=== PATIENT | male | born 1940 | race Caucasian/White ===

== ENCOUNTER 2018-06-05 08:00 | Day surgery (SDC) | payer MEDICARE, BC ==
[2018-06-04 10:44] LABS: HEMATOCRIT 42.3 % (42.0-54.0); HEMOGLOBIN 14.3 g/dL (13.5-17.5); MCH 28.7 pg (26.0-34.0); MCHC 33.8 g/dL (31.0-37.0); MCV 84.8 fL (80.0-100.0); MEAN PLATELET VOLUME 8.8 fL (7.4-10.4); RBC 4.99 10x6/uL (4.20-6.10); RDW 13.4 % (11.5-14.5); WBC 7.3 10x3/uL (4.8-10.8)
[~2018-06-05] VITALS: Ht 162.6 cm; Wt 78.2 kg
[~2018-06-05 08:00] MED LIST: ASPIRIN EC81 M1 PO; COREG6.25 MG PO; LIPITOR80 MG PO; LISINOPRIL2.5 MG PO; LYCOPENE PO; MULTI-DAY VITAM1 TAB PO; NITROQUICK0.4 MG SL
[2018-06-05 08:15] VITALS: BP 118/43; Ht 162.6 cm; Wt 78.2 kg
--- NOTE | 2018-06-05 12:47 | OP ---
PATIENT NAME: ANALY TONEY MEDICAL RECORD: [id number] :41 LOCATION:[facility] ADMISSION DATE: SURGEON: BILL CABRERA MD DATE OF OPERATION: 06/05/2018 SURGEON: Bill Cabrera MD ANESTHESIA: TIVA by Sandeep Chowdhury CRNA. DIAGNOSES: Elevated PSA of 4.8 on 05/08/2018. Bladder outlet obstruction with an IPSS score of 15 and quality of life score of 2. PROCEDURES: Cystoscopy, transrectal ultrasound and prostate biopsy. FINDINGS: On cystoscopy, bilateral lateral lobe enlargement. Minimal median lobe. Single ureteral orifices seen bilaterally with no bladder tumors seen. On transrectal ultrasound, the prostate is 48 grams in size. There is a hypoechoic area in the right apex and intraprostatic stones are seen. SPECIMENS: Prostate biopsy cores. BLOOD LOSS: None. CLINICAL HISTORY: This is a 77-year-old male, who was recently moved to [place] from [place], [place]. He has issues with obstructive BPH. He had an elevated PSA in 2016 and a prostate biopsy in 2017 by his urologist, Dr. Blum. This was benign. He continues to have obstructive voiding symptoms including hesitancy, slow urinary flow, postvoid dribbling and straining to fully empty. He has not had any urinary tract infections. Significantly, his father had BPH and prostate cancer. He was in the [place], but he did not have any [place] exposure. On rectal examination, no palpable nodules were found on the prostate. He comes today to have a prostate biopsy. If the pathology is benign, he is a candidate for the UroLift procedure. He is not allergic to any medications. He was given Ancef family preservation caseworker to the OR. DESCRIPTION OF PROCEDURE: The patient was given IV sedation. He was then placed into lithotomy position and prepped and draped. A 17-Kiswahili cystoscope with 30-degree lens was used for visualization. The prostate was obstructive and it was mainly lateral lobe obstruction. The bladder neck was a little bit tall, but no significant median lobe was identified. No bladder tumors were seen. The bladder was then emptied through the cystoscope and the scope was removed. We then introduced the transrectal ultrasound probe. Prostatic size measurements were obtained and we obtained a size of 48 mL or 48 grams. Internal prostatic stones were seen. At the right apex, we noted a prominent hypoechoic area. Sextant biopsies were obtained with at least 3 cores from each sextant. On the right apex, I concentrated a few cores right at the hypoechoic zone. Once all the specimens were obtained, the procedure was terminated. I will see the patient in followup later this week or early next week to review the pathology results with him. TRANSINT:[id number] Voice Confirmation ID: [id number] DOCUMENT ID: [id number] OPERATIVE REPORT [id number] ANALY TONEY ROBERT S MD at 1247 CC: [id number] DICTATION DATE: 06/05/18 1119 LIGHTER: 06/05/18 [id number] [place] [address]
--- NOTE | 2018-06-05 15:46 | NUR ---
1220 DRESSED, AWAKE & ALERT. GIVEN DISCHARGE INFORMATION INCLUDING: MED REC, RTC APPT., [facility], & COMPUTER GENERATED POST PROSTATE BIOPSY & POST CYSTOSCOPY D/C INSTRUCTIONS. PT VOICED UNDERSTANDING. TO PRIVATE CAR PER WHEELCHAIR. HOME WITH FRIEND, TAE GUZMANBELL. Carrington PENA R.N.
== END 2018-06-05 12:20 | disposition home or self-care (01) ==
LOC: D.OPS 08:00 → D.PAN 10:10 → D.OPS 10:10 → D.PAN 11:00 → D.OPS 11:15 → D.PAN 11:15 → D.OPS 12:20
PROVIDERS: Anesthesiology; ATTEND Urology
DX: N42.31 Prostatic intraepithelial neoplasia (principal); N40.1 Benign prostatic hyperplasia with lower urinary tract symptoms; N13.8 Other obstructive and reflux uropathy; N42.0 Calculus of prostate; R39.11 Hesitancy of micturition; R39.16 Straining to void; R39.12 Poor urinary stream; Z80.42 Family history of malignant neoplasm of prostate; Z01.812 Encounter for preprocedural laboratory examination

== ENCOUNTER 2018-07-17 05:12 | Day surgery (SDC) | payer MEDICARE, BC ==
[~2018-07-17] VITALS: Ht 162.6 cm; Wt 65.8 kg
[2018-07-17 05:29] LABS: HEMATOCRIT 39.9 % (42.0-54.0); HEMOGLOBIN 13.6 g/dL (13.5-17.5); MCH 29.5 pg (26.0-34.0); MCHC 34.1 g/dL (31.0-37.0); MCV 86.6 fL (80.0-100.0); RBC 4.61 10x6/uL (4.20-6.10); RDW 13.3 % (11.5-14.5); WBC 9.4 10x3/uL (4.8-10.8)
[2018-07-17 06:30] VITALS: BP 142/60; Ht 162.6 cm; Wt 65.8 kg
--- NOTE | 2018-07-17 08:52 | NUR ---
0850 SERVED FULL LIQUID DIET. Carrington PENA R.N.
--- NOTE | 2018-07-17 12:51 | OP ---
PATIENT NAME: ANALY TONEY MEDICAL RECORD: [id number] :41 LOCATION:[facility] ADMISSION DATE: SURGEON: BILL CABRERA MD DATE OF OPERATION: 07/17/2018 SURGEON: Bill Cabrera MD ANESTHESIA: TIVA by Sandeep Chowdhury CRNA. DIAGNOSES: Obstructive BPH with PSA 4.8. Transrectal ultrasound size is 48 grams. IPPS score is 15 and quality of life score is 2. PROCEDURE: UroLift times 5 units deployed, 4 held in position. FINDINGS: Bilateral lateral lobe hyperplasia. SPECIMENS: None. ESTIMATED BLOOD LOSS: Minimal. CLINICAL HISTORY: This is a 77-year-old male, who had a prostate biopsy performed for an elevated PSA of 4.8 on 05/08/2018. He has bladder outlet obstruction symptoms also. On cystoscopy, he has bilateral lateral lobe enlargement with a minimal median lobe. No bladder tumors were seen. On transrectal ultrasound the prostate is 48 grams in size. His pathology on the biopsy was benign. He now wishes to proceed with the UroLift. He is not allergic to any medications. He was given Ancef application services manager to the OR. DESCRIPTION OF PROCEDURE: The patient was given IV sedation. He was then placed into the lithotomy position and prepped and draped. The UroLift scope was introduced after dilating the urethral meatus to 24 Armenian using male sounds. No urethral strictures were seen. The prostatic urethral findings as outlined above. We then deployed the bladder neck units. At the anterolateral portion of the lateral lobe about 1.5 cm distal to the bladder neck, we placed 1 unit on each side. These held without any issues. I then placed 2 units at the verumontanum level. On the right side, there was no issue. On the left side, the unit struck bone. I attempted to salvage it by relieving pressure and then reapplying pressure, but it did not hold. The site of the needle stick has a bit of venous bleeding. I fired another unit into the left verumontanum level at the lateral anterior portion of the prostatic urethra. This one did hold. Thus, he has 5 units applied, but 4 held. At the end of the procedure, there was a nice wide anterior urethral channel. The bladder was left partly filled with irrigation fluid for a voiding trial today. If he is able to void then he will go home without a Cruz catheter. I will see him in followup in 1 month's time. TRANSINT:[id number] Voice Confirmation ID: [id number] DOCUMENT ID: [id number] OPERATIVE REPORT [id number] ANALY TONEY ROBERT S MD at 1251 CC: [id number] DICTATION DATE: 07/17/18 0808 SENIOR TECHNICAL MANAGER: 07/17/18 [id number] [place] [address]
--- NOTE | 2018-07-17 13:35 | NUR ---
0930 DRESSED. AWAKE & ALERT. GIVEN DISCHARGE INFORMATION INCLUDING, MED REC, RTC APPT., [facility] D/C INSTRUCTIONS, & UROLIFT D/C INSTRUCTIONS. PT VOICED UNDERSTANDING. TO PRIVATE CAR PER WHEELCHAIR BY VOLUNTEER. HOME WITH FRIEND, TAE ECVALLOS. Carrington PENA R.N.
== END 2018-07-17 09:30 | disposition home or self-care (01) ==
LOC: D.OPS 05:12 → D.PAN 07:30 → D.OPS 08:00
PROVIDERS: Anesthesiology; ATTEND Urology
DX: N40.1 Benign prostatic hyperplasia with lower urinary tract symptoms (principal); N13.8 Other obstructive and reflux uropathy; Z01.812 Encounter for preprocedural laboratory examination

== ENCOUNTER → 2018-09-20 10:26 | Outpatient (CLI) | payer MEDICARE, BC ==
[2018-07-17 06:30] VITALS: BMI 24.9
--- NOTE | ~2018-09-20 | ST ---
PATIENT:ANALY TONEY MEDICAL RECORD: [id number] SEX: M LOCATION:[facility] ORDER #: ADMISSION DATE: 09/20/18 AGE OF PATIENT: 77 REFERRING PHYSICIAN: INTERPRETING PHYSICIAN: PAVAN LEES MD DATE OF SERVICE: 09/20/2018 INDICATIONS: Angina and coronary artery disease, shortness of breath, hypertension, and hyperlipidemia. He was exercised on standard Eh protocol for 7 minutes 30 seconds achieving 100% max target heart rate response with 32 mCi of sestamibi injected at peak stress, 10 mCi were used previously for rest images. FINDINGS: Gated SPECT reveals a preserved ejection fraction of 56% with good wall motioning and thickening and brightening throughout all segments. SPECT Imaging: Cardiolite was used as myocardial perfusion agent. There is reversibility anteriorly apically as well as inferiorly, which includes the basal, mid, apical and inferior segments and the apex itself. The degree of reversibility is mild to moderate. The amount of myocardium involved is large. OVERALL IMPRESSION: This is an intermediate to high risk nuclear stress test with a large amount of myocardium at risk for ischemia anteriorly, apically as well as inferiorly suggestive of multivessel coronary artery disease. We will proceed with coronary angiography as a followup study. TRANSINT:[id number] Voice Confirmation ID: [id number] DOCUMENT ID: [id number] PAVAN LEES MD CC: MICHAEL HOLLOWAY MD [id number] DICTATION DATE: 09/21/18 1252 DRAINAGE INSPECTOR: 09/21/18 2352 DEP CLI 09/20/18 [facility] [address] [id number]
== END | disposition home or self-care (01) ==
LOC: D.HCCARDIO 10:26
PROVIDERS: ATTEND Internal Medicine Interventional Cardiology
DX: I25.119 Atherosclerotic heart disease of native coronary artery with unspecified angina pectoris (principal)

== ENCOUNTER 2018-09-28 07:54 | Outpatient (CLI) | payer MEDICARE, BC ==
[~2018-09-28] VITALS: Ht 162.6 cm; Wt 79.5 kg
--- NOTE | ~2018-09-28 | HEMODYNAMI ---
PATIENT:ANALY TONEY MEDICAL RECORD: [id number] : 42 LOCATION:[facility] ADMISSION DATE: 09/28/18 Generatedon:09/28/201810:46 Patient name: ANALY TONEY Patient #: [id number] : 1940 Date of study: 09/28/2018 Page: Of Hemodynamic Procedure Report Patient Data Patient Demographics Procedure consent was obtained First Name: ANALY Gender: Male Last Name: DAWNA : 1940 Middle Initial: KIMBERLY Age: 77 year(s) Patient #: [id number] Race: SSN: [id number] Additional ID: [id number] Contact details [address]: [address] [place] [address] State: [place] City: [place] Zip code: [address] Past Medical History Performed procedures and imaging results Date Procedure Procedure Results Comments 09/20/2018 Stress testing Positive->High with SPECT MPI risk History of disease Date Diagnosis Comments Hypertension Previous ND Allergies: No known allergies Admission Admission Data Admission Date: 09/28/2018 Admission Time: 7:54 Arrival Date: 09/28/2018 Arrival Time: 0:00 Admit Source: Other Insurance Payor: Private health insurance, Medicare [facility] #: [id number] Height (in.): 63.78 BSA: 1.84 (m2) Height (cm.): 162 BMI: 30.1 (kg/m2) Weight (lbs.): 174.17 Weight (kg.): 79 Medications upon Admission Medications Dosage Times Administered Last Remarks per Delivery Day Date and Time Aspirin (any) Statin (any) Current Diagnosis Diagnosis Description Stable angina Lab Results Lab Result Date: 09/28/2018 Lab Result Time: 8:30 Biochemistry Name Units Result Min Max BUN mg/dl 15 --(--*-)-- 7 18 Creatinine mg/dl 1 --(--*-)-- 0.6 1.3 CBC Name Units Result Min Max Hematocrit % 42.7 --(*---)-- 42 54 Hemoglobin g/dl 14.7 --(-*--)-- 13.5 17.5 Procedure Procedure Types Cath Procedure Diagnostic Procedure [facility] w/Coronaries FFR/IVUS FFR Initial FFR Additional PCI Procedure Coronary Stent Coronary Stent Initial Procedure Description Procedure Date Procedure Date: 09/28/2018 Procedure Start Time: 10:13 Procedure End Time: 10:41 Procedure Staff Name Function Jona Lopez MD Performing Physician Pradeep Chavis RT Monitor Vazquez Munguia RT Scrub Chuy Gilliland RN Nurse Indication Abnormal cardiolyte Angina Non-invasive tests a cardiolite test positive Previous ND Progressive angina Procedure Data Cath Procedure Fluoroscopy Diagnostic fluoroscopy Total fluoroscopy Time: 7.5 time: 7.5 min min Diagnostic fluoroscopy Total fluoroscopy dose: dose: 1070 mGy 1070 mGy Contrast Material Contrast Material Type Amount (ml) Isovue 300 125 Entry Location Entry Primary Successful Side Size Upsize Upsize Entry Closure Mchugh ccessful Closure Location (Fr) 1 (Fr) 2 (Fr) Remarks Device Remarks Radial Right 6 Fr Mechanical artery Short Compression Diagnostic catheters Device Type Used For End Catheter Placement DIAGNOSTIC [place] 110cm 5 LV Angiography Fr catheter ([id number]) Procedure Complications No complications Procedure Medications Medication Administration Route Dosage Oxygen etCO2 Nasal cannula 2 l/min Lidocaine 2% added to field 20 Heparin Flush Bag added to field 2 bags (1000units/500ml NS) 0.9% NaCl I.V. 100 ml/hr Radial Cocktail I.A. 1 syringe (Verapamil 2mg/Nitro 400mcg/Heparin 1500units) Versed I.V. 1 mg Fentanyl I.V. 50 mcg Heparin Bolus I.V. 4000 units Versed I.V. 1 mg Fentanyl I.V. 50 mcg Integrilin (Bolus I.V. 7.3 ml 2mg/ml) Plavix P.O. 600 mg Hemodynamics Rest BSA: 1.84 (m2) O2 Consumption: Estimated: 210.7 (ml/min) O2 Consumption indexed: Estimated:114.51 (ml/min/m) Heart Rate: 69 (bpm) Snapshots Pre Cath Intra NCS Post Cath Vital Signs Time Heart Resp SPO2 etCO2 NIBP (mmHg) Rhythm Pain Sedation Rate (ipm) (%) (mmHg) Status Level (bpm) 9:51:57 69 12 98 0 151/77(109) NSR 0 (11) 10(A) , No pain 9:56:15 65 12 95 0 134/67(111) NSR 0 (11) 10(A) , No pain 10:00:31 66 12 94 7.5 122/70(96) NSR 0 (11) 10(A) , No pain 10:04:49 64 11 94 0 126/69(106) NSR 0 (11) 10(A) , No pain 10:08:59 72 20 5 12.8 127/77(122) NSR 0 (11) 10(A) , No pain 10:13:17 65 16 94 19.6 133/72(117) NSR 0 (11) 9(A) , No pain 10:17:29 72 17 94 24.1 107/67(82) NSR 0 (11) 9(A) , No pain 10:21:33 70 23 94 13.5 107/73(100) NSR 0 (11) 9(A) , No pain 10:25:43 75 25 93 23.4 108/56(81) NSR 0 (11) 9(A) , No pain 10:29:57 73 19 93 20.3 112/62(95) NSR 0 (11) 9(A) , No pain 10:34:13 72 22 95 22.6 105/60(96) NSR 0 (11) 9(A) , No pain 10:38:18 71 12 96 24.8 107/60(75) NSR 0 (11) 10(A) , No pain Medications Time Medication Route Dose Verified Delivered Reason Not es Effectiveness by by 9:53:04 Oxygen etCO2 2 l/min Jona Vera used for Nasal John Gilliland RN procedure cannula 9:53:11 Lidocaine 2% added 20ml Jona Tenorio for local to vial John Lopez MD anesthetic field 9:53:17 Heparin Flush added 2 bags Jona Tenorio used for Bag to John Lopez MD procedure (1000units/500ml field NS) 9:53:27 0.9% NaCl I.V. 100 Jona Vera Per physician ml/hr John Gilliland RN 9:53:35 Radial Cocktail I.A. 1 Jona Tenorio for (Verapamil syringe John Lopez MD vasodilation 2mg/Nitro 400mcg/Heparin 1500units) 10:11:34 Versed I.V. 1 mg Jona Vera for sedation John Gilliland RN 10:11:40 Fentanyl I.V. 50 mcg Jona Vera for sedation John Gilliland RN 10:14:52 Versed I.V. 1 mg Jona Vera for sedation John Gilliland RN 10:14:56 Fentanyl I.V. 50 mcg Jona Vera for sedation John Gilliland RN 10:19:45 Heparin Bolus I.V. 4000 Jona Vera for dez ified units John Gilliland RN anticoagulation with dr lopez 10:21:26 Integrilin I.V. 7.3 ml Jona Vera for was jermain (Bolus 2mg/ml) John Gilliland RN antiplatelet 2.3 ml therapy of vial 10:38:57 Plavix P.O. 600 mg Jona Vera for John Gilliland RN antiplatelet therapy Procedure Log Time Note 8:32:15 Arrival Date: 09/28/2018 12:00:00 AM 8:32:18 Insurance Payor : Private health insurance, Medicare 8:34:55 Current Diagnosis : Stable angina 8:35:05 Diagnostic Cath Status : Elective 8:35:16 Indication : Abnormal cardiolyte 8:35:30 Indication : Angina 8:36:27 Indication : Non-invasive tests a cardiolite test positive 8:36:37 Indication : Previous ND 8:37:18 Indication : Progressive angina 8:38:34 Patient Height : 63.78 inches 8:38:37 Patient Weight : 174.17 lbs 9:10:23 Chuy Gilliland RN sent for patient. Start room use. 9:31:26 Informed consent obtained and on chart 9:31:35 Admit Source: Other 9:32:21 Procedure Status Elective Heart Cath (OP). 9:35:29 Lab Result : Hemoglobin 14.7 g/dl 9:35:29 Lab Result : Creatinine 1 mg/dl 9:35:29 Lab Result : BUN 15 mg/dl 9:35:29 Lab Result : Hematocrit 42.7 % 9:35:43 Time tracking: Regular hours (M-F 7:00 - 5:00) 9:35:47 Plan of Care:Hemodynamics will remain stable., Cardiac rhythm will remain stable., Comfort level will be maintained., Respiratory function will remain adequate., Patient/ family verbilizes understanding of procedure., Procedure tolerated without complication., Recovers from procedure without complications.. 9:42:34 H&P Date Dictated: 09/17/2018 Within 30 days and on chart.. 9:42:44 H&P Date Dictated: 09/28/2018 H&P Addendum completed by physician on day of procedure. (MUST COMPLETE FOR ALL OUTPATIENTS). 9:42:46 Warm blankets applied, and deena hugger turned on for patient comfort. 9:42:47 Correct patient and procedure confirmed by team. 9:42:47 ECG and BP/O2 sat monitors applied to patient. 9:50:35 Vital chart was started 9:50:36 Baseline sample Acquired. 9:50:39 Rhythm: sinus rhythm 9:50:43 Full Disclosure recording started 9:50:44 Pre-procedure instructions explained to patient. 9:50:44 Pre-op teaching completed and patient verbalized understanding. 9:50:46 Family in waiting room. 9:50:48 Patient NPO since Midnight. 9:50:56 Patient allergic to No known allergies 9:50:58 Is the patient allergic to Iodine/contrast media? No. 9:51:03 Is patient on blood thinner?Yes 9:51:13 ACC The patient was administered the following blood thiners within the last 24 hours: ACCAspirin 9:51:22 Patient diabetic? No. 9:51:23 ----Pre-sedation anethsthesia assessment.---- 9:51:25 Previous problem with sedation/anesthesia? No ? 9:51:27 Snore? Yes 9:51:28 Sleep apnea? No 9:51:29 Deviated septum? No 9:51:30 Opens mouth fully? Yes 9:51:32 Sticks out tongue? Yes 9:51:34 Airway obstruction? No ? 9:51:38 Dentures? Yes in tight 9:51:42 Pre procedure: right dorsailis pedis pulse 2+ Normal; easily identifiable; not easily obliterated 9:51:46 Modified Roberto's test Ulnar < 7 seconds 9:51:48 Patient pain scale 0/10 ?. 9:51:55 IV patent on arrival in right forearm with 0.9% NaCl at KVO. 9:51:58 Lab results completed and on chart. 9:52:05 Right Radial & Right Groin area was prepped with chlora-prep and draped in sterile fashion 9::06 Alarms reviewed by R. N. 9::06 Sharps counted by scrub and verified by R.N. 9:53:04 Oxygen 2 l/min etCO2 Nasal cannula was administered by Chuy Gilliland RN; used for procedure; :53:11 Lidocaine 2% 20ml vial added to field was administered by Jona Lopez MD; for local anesthetic; :53:17 Heparin Flush Bag (1000units/500ml NS) 2 bags added to field was administered by Jona Lopez MD; used for procedure; 9:53:27 0.9% NaCl 100 ml/hr I.V. was administered by Chuy Gilliland RN; Per physician; 9:53:35 Radial Cocktail (Verapamil 2mg/Nitro 400mcg/Heparin 1500units) 1 syringe I.A. was administered by Jona Lopez MD; for vasodilation; 10:00:53 Physician paged 10:04:10 Zero performed for pressure channel P1 10:10:25 Physician arrived 10:10:26 --------ALL STOP TIME OUT------ 10:10:26 Final Timeout: patient, procedure, and site verified with staff and physician. All members of the team are in agreement. 10:10:29 Right Radial & Right Groin site verified by team. 10:10:33 Fire Safety Assessment: A--An alcohol-based skin anteseptic being used preoperatively., C--Open oxygen or nitrous oxide is being used., D--An ESU, laser, or fiber-optic light is being used. 10:10:37 Physical assessment completed. ASA score P 2 - A patient with mild systemic disease as per Jona Lopez MD. 10:10:43 2) 60-89 Mildly reduced kidney function, and other findings (as for stage 1) point to kidney disease. 10:10:48 Maximum allowable contrast dose (3.7 X eGFR X 0.75)213 ml. 10:10:52 Sedation plan: IV Moderate Sedation Medication:Versed, Fentanyl 10:10:56 Use device set Radial Dx or PCI 10:10:58 ACIST Syringe (91989) opened to sterile field. 10:10:58 Medline Cath Pack ([id number]) opened to sterile field. 10:10:59 Bag Decanter (2002S) opened to sterile field. 10:10:59 ACIST Hand Control (00811) opened to sterile field. 10:10:59 ACIST Manifold (26924) opened to sterile field. 10:11:00 Tegaderm 4 x 4 (1626W) opened to sterile field. 10:11:01 MBrace Wrist Support ([id number]) opened to sterile field. 10:11:03 TR BAND Standard ([id number]) opened to sterile field. 10:11:04 EMERALD Guide Wire (502-251) opened to sterile field. 10:11:05 SHEATH 6FR RAIN (3153156) opened to sterile field. 10:11:08 Procedure started. 10:11:34 Versed 1 mg I.V. was administered by Chuy Gilliland RN; for sedation; 10:11:40 Fentanyl 50 mcg I.V. was administered by Chuy Gilliland RN; for sedation; 10:13:03 Local anesthetic to right radial artery with Lidocaine 2% by Jona Lopez MD.INITIAL ACCESS ONLY 10:13:10 A 6 Fr Short sheath was inserted into the Right Radial artery 10:13:18 A DIAGNOSTIC [place] 110cm 5 Fr catheter (915241) was advanced over the wire and used for LV Angiography. 10:13:22 LV angiography performed. 10:13:25 LV gram done using HOOK 10:14:14 EF : 55 % 10:14:20 RCA angiography performed. 10:14:52 Versed 1 mg I.V. was administered by Chuy Gilliland RN; for sedation; 10:14:56 Fentanyl 50 mcg I.V. was administered by Chuy Gilliland RN; for sedation; 10:15:57 Catheter removed. 10:16:06 6 Fr XBLAD 3.5 guide catheter was inserted over the wire 10:16:13 GUIDE 6FR XBLAD 3.5 catheter ([id number]) opened to sterile field. 10:16:25 LCA angiography performed. 10:17:43 Procedure type changed to Cath procedure, Diagnostic procedure, LHC, LHC w/Coronaries, FFR/IVUS, FFR Initial, FFR Additional, PCI procedure, Coronary Stent, Coronary Stent Initial 10:18:29 INFLATOR Merit BasixCompak (LO4937) opened to sterile field. 10:18:30 GUIDE 6FR AR 2.0 SH catheter ([id number]) opened to sterile field. 10:18:30 CHOICE PT Extra Support 182cm wire ([id number]) opened to sterile field. 10:18:30 Valentine Verrata Plus pressure wire (41869B) opened to sterile field. 10:19:14 FFR/IVUS 10:19:16 FFR/IFR wire advanced. 10:19:30 Wire advanced across lesion. 10:19:45 Heparin Bolus 4000 units I.V. was administered by Chuy Gilliland RN; for anticoagulation; verified with dr lopez 10:20:50 Baseline FFR 1. 10:21:14 pLAD lesion measured at 0.89 with IFR 10:21:26 Integrilin (Bolus 2mg/ml) 7.3 ml I.V. was administered by Chuy Gilliland RN; for antiplatelet therapy; wasted 2.3 ml of vial 10:22:15 Pre PCI Site: [place] pLAD has 70% stenosis. 10:23:36 Place stent Inflation Number: 1 A JOHN RX 3.0 x 15 stent ([id number]) was prepped and advanced across the Prox LAD 70. The stent was deployed at 13 DENISA for 0:11 (min:sec) 0. 10:24:07 Stent catheter was removed intact over wire. 10:24:11 Wire removed. 10:25:17 CPTES wire advanced. 10:26:26 Pre PCI Site: [place] mCirc has 100% stenosis. 10:27:06 Wire removed. 10:27:32 FIELDER XT J 300cm guide wire ([id number]) opened to sterile field. 10:27:43 FIELDER XT wire advanced. 10:30:22 Wire removed. 10:30:29 ACT DRAW 10:30:42 The EMERGE OTW 1.5 x 20 balloon ([id number]) was advanced and then removed because of failure to cross lesion 10:30:49 Wire removed. 10:30:49 Guide catheter removed. 10:31:05 ACC Pre-intervention MIGUEL ANGEL Flow is 3. 10:31:16 ACCDominant side:Co-Dominant 10:31:30 6 Fr AR 2 SH guide catheter was inserted over the wire 10:31:42 FFR/IVUS 10:31:44 FFR/IFR wire advanced. 10:33:53 ACT: 394 10:34:19 Wire removed. 10:34:28 Valentine Verrata Plus pressure wire (58881Y) opened to sterile field. 10:34:35 FFR/IVUS 10:34:37 FFR/IFR wire advanced. 10:34:39 Wire advanced across lesion. 10:36:35 Baseline FFR 1.02. 10:37:08 mRCA lesion measured at 0.95 with IFR 10:38:51 Wire removed. 10:38:52 Guide catheter removed. 10:38:57 Plavix 600 mg P.O. was administered by Chuy Gilliland RN; for antiplatelet therapy; 10:39:01 Sheath removed intact; hemostasis achieved with Mechanical Compression to the Right Radial artery. 10:39:03 Procedure ended.(Physican Out) 10:39:15 Fluoroscopy time 07.50 minutes. 10:39:21 Fluoroscopy dose: 1070 mGy 10:39:21 Flurop Dose total: 1070 10:39:58 Contrast amount:Isovue 300 125ml. 10:40:02 Maximum allowable dose exceeded? No. 10:40:03 Sharps counted by scrub and verified by R.N. 10:40:04 Insertion/operative site no bleeding no hematoma. 10:40:07 Post-op/insertion site Right Femoral artery dressed using a 4 x 4 and Tegaderm. 10:40:11 Post right femoral artery:stable 10:40:12 Post Procedure Pulses reassessed and unchanged 10:40:14 Post procedure: right dorsailis pedis pulse 2+ Normal; easily identifiable; not easily obliterated. 10:40:19 Post-procedure physical assessment completed. ASA score P 2 - A patient with mild systemic disease as per Jona Lopez MD. 10:40:21 Post procedure rhythm: sinus rhythm 10:40:22 Post procedure instruction explained to patient.Patient verbalizes understanding. 10:40:24 Procedure and supply charges have been captured, reviewed, submitted and are correct. 10:41:03 Procedure Complication : No complications 10:41:06 Vital chart was stopped 10:41:06 See physician's report for complete and final results. 10:41:09 Report given to Pre/Post Procedure Room. 10:41:13 Patient transfered to Pre/Post Procedure Room with Stretcher. 10:41:17 Procedure ended. 10:41:17 Full Disclosure recording stopped 10:41:23 ACC-PCI Only Patient was given prescriptions, or instructed by Jona Lopez MD to start/continue the following medications upon discharge: Plavix 10:41:24 End room use (Document Last) Intervention Summary Intervention Notes Time ActionType Lesion and Equipment Used Action# Pressure Duration Attributes 10:23:36 Place stent Prox LAD JOHN RX 3.0 x 1 13 00:11 15 stent ([id number]) 10:30:42 Discard EMERGE OTW 1.5 Balloon x 20 balloon ([id number]) Device Usage Item Name Manufacture Quantity Catalog Number [facility] Minimal Lot# / Charge Number Stock Stock Serial# Code ACIST Syringe Acist 1 02346 737402 107471 [id number] 20 (58890) Medical Systems Inc Medline Cath Medline 1 [id number] 715199 71539 077077 5 Pack ([id number]) Bag Decanter Microtek 1 2001S 962824 56919 101759 5 (2002S) Medical Inc. ACIST Hand Acist 1 65211 082037 333619 737437 5 Control Medical (35371) Systems Inc ACIST Manifold Acist 1 20580 848554 259250 417836 5 (51749) Medical Systems Inc Tegaderm 4 x 4 3M 1 1626W 728668 423096 429958 5 (1626W) MBrace Wrist Advanced 1 140-0250-00 403103 38653 753697 5 Support Vascular (306015334) Dynamics TR BAND Terumo 1 [id number] 599666 077043 738660 40 Standard ([id number]) EMERALD Guide Cardinal 1 502-455 238579 672923 084693 5 Wire (502-455) Health SHEATH 6FR Cardinal 1 1076869 046039 3197170 548818 5 RAIN (8784517) Health DIAGNOSTIC Terumo 1 40-5013 486196 549091 620013 5 [place] 110cm 5 Fr catheter (549712) GUIDE 6FR Cardinal 1 [id number] 254483 822584 967823 10 XBLAD 3.5 Health catheter (24813461) INFLATOR Merit Merit 1 [id number] 564521 065860 147826 15 BasixCompak Medical (MV6605) GUIDE 6FR AR Medtronic 1 [id number] 495628 90645 247856 1 2.0 SH catheter ([id number]) CHOICE PT [place] 1 [id number] 755327 885975 989288 5 Extra Support Scientific 182cm wire ([id number]) Valentine Valentine 2 34726Y 294675 165844987 665184 5 [id number] Verrata Plus 834930 pressure wire [id number] (55717F) 111152 JOHN RX 3.0 x Medtronic 1 [id number] 133834 4124103 601230 5 [id number] 15 stent ([id number]) FIELDER XT J Slater 1 [id number] 754988 562934 359626 5 [id number] 300cm guide Vascular wire ([id number]) EMERGE OTW 1.5 [place] 1 [id number] 799108 888469 962072 5 [id number] x 20 balloon Scientific ([id number]) Signature Audit [place] Stage Time Signature Unsigned Intra-Procedure 09/28/2018 Pradeep HILLMAN(Monse) 10:46:46 AM Signatures Performing Physician : Signature : Jona Lopez MD Date : Time : Monitor : Pradeep HILLMAN Signature : Date : Time : Nurse : Chuy Gilliland RN Signature : Date : Time : [address] [place] [address]
[2018-09-28 08:22] VITALS: BP 143/81; Ht 162.6 cm; Wt 79.5 kg
[2018-09-28 08:36] LABS: BASOPHILS 0.4 % (0-2); EOSINOPHILS 5.1 % (0-7); HEMATOCRIT 42.7 % (42.0-54.0); HEMOGLOBIN 14.7 g/dL (13.5-17.5); IMMATURE GRANULOCYTES 0.2 % (0-5); MCH 29.6 pg (26.0-34.0); MCHC 34.4 g/dL (31.0-37.0); MCV 85.9 fL (80.0-100.0); MEAN PLATELET VOLUME 9.1 fL (7.4-10.4); MONOCYTES 13.1 % (2-11); NEUTROPHILS 57.2 % (40-80); PLATELET COUNT 226 10x3/uL (130-400); RBC 4.97 10x6/uL (4.20-6.10); RDW 13.2 % (11.5-14.5); WBC 8.1 10x3/uL (4.8-10.8)
[2018-09-28 09:11] LABS: CALC OSMOLALITY 279 mosm/kg (275-300); CALCIUM 8.8 mg/dL (8.5-10.1); CARBON DIOXIDE 27.7 mmol/L (21.0-32.0); CHLORIDE - SERUM 105 mmol/L (98-107); GLUCOSE 103 mg/dL (74-106); SODIUM 140 mmol/L (136-145); UREA NITROGEN 15 mg/dL (7-18); eGFR NON AFRICAN AMERICAN 77 mL/min (90-120)
[2018-09-28] MEDS ORDERED: PLAVIX75 MG (10:44)
[2018-09-28] MEDS ORDERED: BAYER CHEWABLE81 MG PO (10:44)
--- NOTE | 2018-09-28 11:04 | NUR ---
RECEIVED PT FROM INVESTIGATION LIEUTENANT. PT IS ALERT AND DENIES ANY C/O PAIN OR NAUSEA. TR BAND IS CDI TO RIGHT WRIST. WRIST IMMOBILIZER IN PLACE. FINGERS WARM AND CAP REFILL IS BRISK. PT DENIES ANY N/V DEFICIT TO HAND. SINUS SHO AT 57, BP IS 107/49. SISTER AT BEDSIDE. CALL LIGTH IN REACH.
--- NOTE | 2018-09-28 11:16 | NUR ---
PT SLEEPING, RESP WITH EASE. NSR AT 62, BP IS 105/52. TR BAND CDI, FINGERS WARM AND CAP REFILL IS BRISK. CALL LIGHT IN REACH.
--- NOTE | 2018-09-28 11:37 | NUR ---
PT SLEEPING, RESP WITH EASE. NSR, RATE 60, BP IS 97/54. TR BAND IS CDI, FINGERS WARM AND CAP REFILL IS BRISK.
--- NOTE | 2018-09-28 12:04 | OP ---
PATIENT NAME: ANALY TONEY MEDICAL RECORD: [id number] :41 LOCATION:[facility] ADMISSION DATE: SURGEON: PAVAN LEES MD DATE OF OPERATION: 09/28/2018 PROCEDURES: 1. PTCA and stent of LAD. 2. IFR of LAD. 3. IFR of RCA. 4. Left heart catheterization. 5. Selective coronary angiography. 6. Left ventriculogram. INDICATIONS: Angina and coronary artery disease. PROCEDURE PERFORMED: After informed consent was obtained and after detailed explanation of risks, benefits as well as alternative therapies, the patient elected to proceed with angiogram and angioplasty. The right radial area was prepped and draped in normal sterile fashion. Right radial artery was cannulated via modified Seldinger technique with placement of 6-Bahraini sheath. All catheters exchanged through this sheath. FINDINGS: Left ventriculogram was performed in standard 30-degree HOOK view, reveals good cardiac wall motion, ejection fraction estimated at 55% to 60%. SELECTIVE CORONARY ANGIOGRAPHY: 1. Left main is with no significant angiographic disease. 2. Left anterior descending has 70% stenosis proximally and IFR was abnormal. 3. The left circumflex has a chronic total occlusion in the mid vessel; however, the first obtuse marginal is widely patent with no significant stenosis. 4. The right coronary has previously placed stents, these are widely patent. There is a questionable stenosis in the PDA; however, IFR was normal at 0.95. PTCA AND STENT OF THE LAD: The stent used was a 3.0 x 15-mm Fabricio. Result was 0% residual stenosis. OVERALL IMPRESSION: Successful PTCA and stent of the LAD going from greater than 70% initial stenosis with an abnormal IFR to 0% residual. TRANSINT:[id number] Voice Confirmation ID: [id number] DOCUMENT ID: [id number] PAVAN LEES MD at 1204 CC: [id number] DICTATION DATE: 09/28/18 1043 LARDER COOK: 09/28/18 1134 [address] [facility] [address] [id number]
--- NOTE | 2018-09-28 12:19 | NUR ---
PT ALERT, DENIES ANY C/O. TR BAND CDI, FINGERS WARM AND CAP REFILL IS BRISK. VSS. SANDWICH AND PO FLUIDS AT BEDSIDE, PT DENIES NEEDS AT THIS TIME.
--- NOTE | 2018-09-28 12:32 | NUR ---
P THAS KIMBERLY SANDWICH WITH NO NAUSEA. IS SITTING UP IN BED, VISITING WITH SISTER. VSS, TR BAND CDI, CAP REFILL IS BRISK.
--- NOTE | 2018-09-28 13:01 | NUR ---
PT SITTING UP IN BED, VISITING WITH SISTER AND FRIENDS AT BEDSIDE. TR BAND IS CDI, FINGERS WARM AND CAP REFILL IS BRISK, PT IS ALERT AND DENIES NEEDS AT THIS TIME. VSS.
--- NOTE | 2018-09-28 13:38 | NUR ---
PT SLEEPING, AWAKNENS EASILY, DENIES ANY C/O PAIN OR NAUSEA. TR BAND IS CDI, FINGERS WARM WITH BRISK CAP REFILL. VSS.
--- NOTE | 2018-09-28 13:50 | NUR ---
2 CC OF AIR WEANED FROM TR BAND WITH NO BLEEDING NOTED.
--- NOTE | 2018-09-28 14:13 | NUR ---
3 CC OF AIR WEANED FROM TR BAND WITH NO BLEEDING NOTED. FINGERS WARM AND CAP REFILL IS BRISK. PT DENIES ANY C/O. VSS. SISTER AT BEDSIDE.
--- NOTE | 2018-09-28 14:58 | NUR ---
1435 ALL REMAINING AIR WEANED FROM TR BAND WITH NO BLEEDING NOTED. FINGERS WARM AND CAP REFILL IS BRISK. 1450 2X2 AND TEGADERM REMAIN CDI TO RIGHT WRIST. IV DC'D WITH CATH INTACT AND PT IS DRESSING FOR DC WITH ASSIST FROM NURSE. DC INSTRUCTIONS HAVE BEEN REVIEWED WITH PT AND SISTER WHO VERBALIZE UNDERSTANDING. PLAVIX PRESCRIPTION TO PT AND HE VERB UNDERSTANDING TO START THIS MEDICATION TOMORROW.
--- NOTE | 2018-09-28 15:03 | NUR ---
PT HAS DRESSED FOR DC WITH ASSIST. PT ESCORTED TO BATHROOM AND VOIDED QS. PT ESCORTED TO PRIVATE AUTO VIA WC BY NURSE WITH SISTER TAKING HIM HOME.
== END 2018-09-28 15:00 | disposition home or self-care (01) ==
LOC: D.CATH 07:54
PROVIDERS: ATTEND Internal Medicine Interventional Cardiology
DX: I25.119 Atherosclerotic heart disease of native coronary artery with unspecified angina pectoris (principal); Z01.812 Encounter for preprocedural laboratory examination
CPT/HCPCS: 93458; C9600; 93571; 93572

== ENCOUNTER → 2019-07-02 08:57 | Outpatient (CLI) | payer MEDICARE, BC ==
[2018-09-28 08:22] VITALS: BMI 30.1
[~2019-07-02 08:57] MED LIST changes: +BAYER CHEWABLE81 MG PO; +PLAVIX75 MG
== END | disposition home or self-care (01) ==
LOC: D.HCCECHO 08:57
PROVIDERS: ATTEND Internal Medicine Cardiovascular Disease
DX: I25.10 Atherosclerotic heart disease of native coronary artery without angina pectoris (principal); R01.1 Cardiac murmur, unspecified

== ENCOUNTER 2019-07-10 11:58 | Outpatient (CLI) | payer MEDICARE, BC ==
[~2019-07-10] VITALS: Ht 162.6 cm; Wt 78.2 kg
--- NOTE | ~2019-07-10 | HEMODYNAMI ---
PATIENT:ANALY TONEY MEDICAL RECORD: [id number] : 42 LOCATION:[facility] ADMISSION DATE: 07/10/19 Generatedon:07/10/201914:00 Patient name: ANALY TONEY Patient #: [id number] : 1940 Date of study: 07/10/2019 Page: Of Hemodynamic Procedure Report Patient Data Patient Demographics Procedure consent was obtained First Name: ANALY Gender: Male Last Name: DAWNA : 1940 Middle Initial: KIMBERLY Age: 78 year(s) Patient #: [id number] Race: SSN: [id number] Additional ID: [id number] Contact details [address]: [address] [place] [address] State: [place] City: [place] Zip code: [address] Past Medical History History of disease Date Diagnosis Comments Hypertension Previous MO Allergies Allergen Reaction Date Comments Reported Other allergy 07/10/2019 Admission Admission Data Admission Date: 07/10/2019 Admission Time: 11:58 Arrival Date: 07/10/2019 Arrival Time: 0:00 Admit Source: Other Insurance Payor: Medicare, Private health insurance [facility] #: [id number] Height (in.): 63.78 BSA: 1.83 (m2) Height (cm.): 162 BMI: 29.72 (kg/m2) Weight (lbs.): 171.96 Weight (kg.): 78 Lab Results Lab Result Date: 07/10/2019 Lab Result Time: 0:00 Biochemistry Name Units Result Min Max BUN mg/dl 14 --(--*-)-- 7 18 Creatinine mg/dl 0.9 --(-*--)-- 0.6 1.3 eGFR ml/min 87 -*(----)-- 90 120 NONAFRICAN Procedure Procedure Types Cath Procedure Diagnostic Procedure LHC LH w/Coronaries Sedation Charges Moderate Sedation up to 15 minutes Procedure Description Procedure Date Procedure Date: 07/10/2019 Procedure Start Time: 13:39 Procedure End Time: 13:58 Procedure Staff Name Function Melo Aquino MD Performing Physician Kristen Cruz RT Monitor Mary Kate Lucas RN Nurse Katie Soto RT Scrub Indication CAD Procedure Data Cath Procedure Fluoroscopy Diagnostic fluoroscopy Total fluoroscopy Time: 5.6 time: 5.6 min min Diagnostic fluoroscopy Total fluoroscopy dose: 751 dose: 751 mGy mGy Contrast Material Contrast Material Type Amount (ml) Isovue 300 83 Entry Location Entry Primary Successful Side Size Upsize Upsize Entry Closure Mchugh ccessful Closure Location (Fr) 1 (Fr) 2 (Fr) Remarks Device Remarks Radial Right 6 Fr Mechanical artery Short Compression Estimated blood loss: 5 ml Diagnostic catheters Device Type Used For End Catheter Placement DIAGNOSTIC Evaristo 110cm Procedure 5Fr catheter ([id number]) DIAGNOSTIC [place] 110cm 5 Procedure Fr catheter ([id number]) DIAGNOSTIC AR1 MOD 5Fr Procedure catheter ([id number]) Procedure Complications No complications Procedure Medications Medication Administration Route Dosage 0.9% NaCl I.V. 100 ml/hr Oxygen etCO2 Nasal cannula 2 l/min Lidocaine 2% added to field 20 Heparin Flush Bag added to field 2 bags (1000units/500ml NS) Radial Cocktail added to field 1 syringe (Verapamil 2mg/Nitro 400mcg/Heparin 1500units) Versed I.V. 2 mg Fentanyl I.V. 50 mcg Versed I.V. 1 mg Fentanyl I.V. 25 mcg Hemodynamics Rest BSA: 1.83 (m2) O2 Consumption: Estimated: 214.64 (ml/min) O2 Consumption indexed : Estimated:117.29 (ml/min/m) Heart Rate: 77 (bpm) Pressure Samples Time Site Value (mmHg) Purpose Heart Use Rate(bpm) 13:42 LV 119/-1,12 Snapshot 77 Gradients Valve Time Site Site Mean SEP/DFP Peak To Heart Use 1 2 (mmHg) (sec/min) Peak Rate (mmHg) (bpm) Aortic 13:42 LV AO 75 Snapshots Pre Cath Intra NCS Post Cath Vital Signs Time Heart Resp SPO2 etCO2 NIBP (mmHg) Rhythm Pain Sedation Rate (ipm) (%) (mmHg) Status Level (bpm) 13:22:34 71 19 98 21.1 150/71(118) NSR 0 (11) 10(A) , No pain 13:26:48 67 18 97 17.8 118/64(102) NSR 0 (11) 10(A) , No pain 13:30:59 67 20 98 17 125/64(93) NSR 0 (11) 10(A) , No pain 13:35:12 72 13 98 14.3 116/65(95) NSR 0 (11) 10(A) , No pain 13:39:23 71 10 97 11.3 124/66(101) NSR 0 (11) 10(A) , No pain 13:43:29 72 11 97 19.6 93/58(88) NSR 0 (11) 10(A) , No pain 13:47:35 71 10 97 19.5 108/56(84) NSR 0 (11) 10(A) , No pain 13:51:45 68 12 97 24.1 112/61(91) NSR 0 (11) 10(A) , No pain 13:55:55 65 10 98 17.6 117/63(98) NSR 0 (11) 10(A) , No pain Medications Time Medication Route Dose Verified Delivered Reason Notes E ffectiveness by by 13:20:38 Versed I.V. 2 mg Melo Mary Kate for Miles Lucas sedation RN 13:20:41 0.9% NaCl I.V. 100 Melo Mary Kate used for ml/hr Miles Lucas invisible braces orthodontist 13:20:47 Fentanyl I.V. 50 mcg Melo Mary Kate for Miles Lucas sedation RN 13:20:53 Oxygen etCO2 2 l/min Melo Mary Kate used for Nasal Miles Lucas procedure cannula RN 13:20:58 Lidocaine 2% added 20ml Melo Melo for local to vial Miles Aquino MD anesthetic field 13:21:02 Heparin Flush added 2 bags Melo Melo used for Bag to Miles Aquino MD procedure (1000units/500ml field NS) 13:21:07 Radial Cocktail added 1 Melo Melo used for (Verapamil to syringe Miles Aquino MD procedure 2mg/Nitro field 400mcg/Heparin 1500units) 13:27:05 Fentanyl I.V. 25 mcg Melo Mary Kate for Miles Lucas sedation RN 13:27:55 Versed I.V. 1 mg Melo Mary Kate for Miles Lucas sedation license clerk Log Time Note 12:42:02 Arrival Date: 07/10/2019 12:00:00 AM 12:42:16 Admit Source: Other 12:44:27 Patient Height : 63.78 inches 12:44:30 Patient Weight : 171.96 lbs 12:44:42 Insurance Payor : Private health insurance, Medicare 12:45:20 Indication : CAD 12:45:28 Procedure Status Elective Heart Cath (OP). 12:45:30 Kristen Cruz RT(R) sent for patient. Start room use. 12:45:32 Time tracking: Regular hours (M-F 7:00 - 5:00) 12:45:37 Plan of Care:Hemodynamics will remain stable., Cardiac rhythm will remain stable., Comfort level will be maintained., Respiratory function will remain adequate., Patient/ family verbilizes understanding of procedure., Procedure tolerated without complication., Recovers from procedure without complications.. 12:45:58 Patient received from Pre/Post Procedure Room to CCL 2 Alert and oriented. Tansferred to table in Supine position. 13:15:36 Warm blankets applied, and deena hugger turned on for patient comfort. 13:15:37 Correct patient and procedure confirmed by team. 13:15:37 ECG and BP/O2 sat monitors applied to patient. 13:16:09 H&P Date Dictated: 07/10/2019 Greater than 30 days; new H&P dictated by physician. Or brief H&P completed., Emergent; H&P N/A, Within 30 days and on chart., H&P Addendum completed by physician on day of procedure. (MUST COMPLETE FOR ALL OUTPATIENTS), ER History on chart., New H&P dictated by physician.. 13:16:11 Pre-procedure instructions explained to patient. 13:16:29 Family unavailable. 13:16:31 Patient NPO since Midnight. 13:16:39 Patient allergic to Other allergy 13:16:42 Informed consent obtained and on chart 13:16:45 Is the patient allergic to Iodine/contrast media? No. 13:16:48 Is patient on blood thinner?No 13:16:51 Patient diabetic? No. 13:16:57 Patient pain scale 0/10 ?. 13:17:10 IV patent on arrival in left forearm with 0.9% NaCl at KVO. 13:17:14 Lab results completed and on chart. 13:18:06 Lab Result : BUN 14 mg/dl 13:18:06 Lab Result : Creatinine 0.9 mg/dl 13:18:06 Lab Result : eGFR NONAFRICAN 87 ml/min 13:19:05 Stress Test: yes; abnormal anterior/lateral 13:19:11 Right Radial & Right Groin area was prepped with chlora-prep and draped in sterile fashion 13:19:12 Alarms reviewed by R. N. 13:19:13 Sharps counted by scrub and verified by R.N. 13:19:14 Physician arrived 13:19:15 --------ALL STOP TIME OUT------ 13:19:16 Final Timeout: patient, procedure, and site verified with staff and physician. All members of the team are in agreement. 13:19:18 Right Radial & Right Groin site verified by team. 13:19:23 Fire Safety Assessment: A--An alcohol-based skin anteseptic being used preoperatively., C--Open oxygen or nitrous oxide is being used., D--An ESU, laser, or fiber-optic light is being used. 13:19:30 Physical assessment completed. ASA score P 3 - A patient with severe systemic disease as per Melo Aquino MD. 13:19:34 2) 60-89 Mildly reduced kidney function, and other findings (as for stage 1) point to kidney disease. 13:19:38 Maximum allowable contrast dose (3.7 X eGFR X 0.75)238 ml. 13:19:44 Sedation plan: IV Moderate Sedation Medication:Versed, Fentanyl 13:20:38 Versed 2 mg I.V. was administered by Mary Kate Lucas RN; for sedation; Verbal order read back and verified. 13:20:41 0.9% NaCl 100 ml/hr I.V. was administered by Mary Kate Lucas RN; used for procedure; Verbal order read back and verified. 13:20:47 Fentanyl 50 mcg I.V. was administered by Mary Kate Lucas RN; for sedation; Verbal order read back and verified. 13:20:53 Oxygen 2 l/min etCO2 Nasal cannula was administered by Mary Kate Lucas RN; used for procedure; Verbal order read back and verified. 13:20:58 Lidocaine 2% 20ml vial added to field was administered by Melo Aquino MD; for local anesthetic; Verbal order read back and verified. 13:21:02 Heparin Flush Bag (1000units/500ml NS) 2 bags added to field was administered by Melo Aquino MD; used for procedure; Verbal order read back and verified. 13:21:07 Radial Cocktail (Verapamil 2mg/Nitro 400mcg/Heparin 1500units) 1 syringe added to field was administered by Melo Aquino MD; used for procedure; Verbal order read back and verified. 13:21:26 Vital chart was started 13:26:35 Use device set Radial Dx or PCI 13:26:37 ACIST Syringe (94964) opened to sterile field. 13:26:37 Medline Cath Pack ([id number]) opened to sterile field. 13:26:38 Bag Decanter (2002S) opened to sterile field. 13:26:39 ACIST Hand Control (37751) opened to sterile field. 13:26:39 ACIST Manifold (41011) opened to sterile field. 13:26:41 MBrace Wrist Support (690722601) opened to sterile field. 13:26:42 NEEDLE Cook 21G 4cm Radial (B59252) opened to sterile field. 13:26:44 SHEATH 6FR RAIN (8066897) opened to sterile field. 13:26:46 EMERALD Guide Wire (862-737) opened to sterile field. 13:27:05 Fentanyl 25 mcg I.V. was administered by Mary Kate Lucas RN; for sedation; Verbal order read back and verified. 13:27:55 Versed 1 mg I.V. was administered by Mary Kate Lucas RN; for sedation; Verbal order read back and verified. 13:37:54 Procedure started. 13:37:54 Full Disclosure recording started 13:39:30 Local anesthetic to right radial artery with Lidocaine 2% by Melo Aquino MD.INITIAL ACCESS ONLY 13:39:39 A 6 Fr Short sheath was inserted into the Right Radial artery 13:40:50 A DIAGNOSTIC Evaristo 110cm 5Fr catheter (102740) was advanced over the wire and used for Procedure. 13:40:58 LV angiography performed. 13:42:33 EF : 50 % 13:49:10 A DIAGNOSTIC [place] 110cm 5 Fr catheter (880161) was advanced over the wire and used for Procedure. 13:49:24 LCA angiography performed. 13:49:45 Catheter removed. 13:51:43 A DIAGNOSTIC AR1 MOD 5Fr catheter (724143M) was advanced over the wire and used for Procedure. 13:51:55 RCA angiography performed. 13:54:14 Catheter removed. 13:54:46 ZEPHYR REGULAR TR BAND (743136) opened to sterile field. 13:55:34 Sheath removed intact; hemostasis achieved with Mechanical Compression to the Right Radial artery. 13:55:38 Procedure ended.(Physican Out) 13:55:54 Fluoroscopy time 05.60 minutes. 13:56:03 Fluoroscopy dose: 751 mGy 13:56:03 Flurop Dose total: 751 13:56:10 Dose Area Product 95184 mGy/cm. 13:56:16 Contrast amount:Isovue 300 83ml. 13:56:32 Maximum allowable dose exceeded? No. 13:56:34 Sharps counted by scrub and verified by R.N. 13:56:43 [place] band inflated with 12cc of air. 13:56:45 Insertion/operative site no bleeding no hematoma. 13:56:54 Post-op/insertion site Right Radial artery dressed using a 4 x 4 and Tegaderm. 13:56:58 Post Procedure Pulses reassessed and unchanged 13:57:04 Post-procedure physical assessment completed. ASA score P 2 - A patient with mild systemic disease as per Melo Aquino MD. 13:57:13 Post procedure rhythm: sinus rhythm 13:57:16 Estimated blood loss: 5 ml 13:57:22 Post procedure instruction explained to patient.Patient verbalizes understanding. 13:57:36 Procedure type changed to Cath procedure, Diagnostic procedure, LHC, LHC w/Coronaries, Sedation Charges, Moderate Sedation up to 15 minutes 13:57:37 Procedure and supply charges have been captured, reviewed, submitted and are correct. 13:57:58 Procedure Complication : No complications 13:58:02 Vital chart was stopped 13:58:04 [facility] Findings: mild to moderate CAD (<70%) 13:58:07 See physician's report for complete and final results. 13:58:16 Report given to Pre/Post Procedure Room. 13:58:22 Patient transfered to Pre/Post Procedure Room with Stretcher. 13:58:25 Procedure ended. 13:58:25 Full Disclosure recording stopped 13:58:33 End room use (Document Last) 13:59:22 End room use (Document Last) 13:59:56 End room use (Document Last) Device Usage Item Name Manufacture Quantity Catalog Hospital Part Current Minima l Lot# / Number Charge Number Stock Stock Serial# Code ACIST Acist 1 83069 [id number] [id number] [id number] 20 Syringe Medical (09656) Systems Inc Medline Medline 1 [id number] 37282 385470 5 Cath Pack ([id number]) Bag Microtek 1 536743 12820 435422 5 Decanter Medical Inc. () ACIST Hand Acist 1 41577 943387 428875 774966 5 Control Medical (07536) Systems Inc ACIST Acist 1 44242 957793 609484 521585 5 Manifold Medical (68541) Systems Inc MBrace Advanced 1 140-0250-00 784927 22928 905427 5 Wrist Vascular Support Dynamics ([id number]) NEEDLE Cook Cook Medical 1 B95146 822288 181332 752598 5 21G 4cm Radial (D00545) SHEATH 6FR Cardinal 1 0629792 914435 3098928 588700 5 RAIN Health (8242669) EMERALD Cardinal 1 502-455 524813 901634 403334 5 Guide Wire Health (502-455) DIAGNOSTIC Terumo 1 40-5023 360641 910585 600372 5 Evaristo 110cm 5Fr catheter (393581) DIAGNOSTIC Terumo 1 40-5013 795569 255446 186526 5 [place] 110cm 5 Fr catheter (597003) DIAGNOSTIC Cardinal 1 [id number] 235672 631089 663296 15 AR1 MOD 5Fr Health catheter (702742M) ZEPHYR Cardinal 1 976090 669016 5651157 874054 5 REGULAR TR Health BAND (626897) Signature Audit Pray Stage Time Signature Unsigned Intra-Procedure 07/10/2019 Kristen Cruz 1:59:22 PM RT(R) Intra-Procedure 07/10/2019 Mary Kate Lucas 1:59:56 PM RN Intra-Procedure 07/10/2019 Melo Aquino MD 2:00:25 PM [place] [id number] [place] [address]
[2019-07-10] MEDS ORDERED: ZINC50 MG PO (12:11)
[2019-07-10] MEDS ORDERED: FISH OIL 1,0001 CA1 PO (12:12)
[2019-07-10] MEDS ORDERED: POTASSIUM99 M1 PO (12:12)
[2019-07-10 12:24] VITALS: BP 159/66; Ht 162.6 cm; Wt 78.2 kg
[2019-07-10 12:58] LABS: BASOPHILS 0.3 % (0-2); HEMATOCRIT 42.8 % (42.0-54.0); HEMOGLOBIN 14.2 g/dL (13.5-17.5); IMMATURE GRANULOCYTES 0.2 % (0-5); MCH 29.3 pg (26.0-34.0); MCHC 33.2 g/dL (31.0-37.0); MCV 88.4 fL (80.0-100.0); MEAN PLATELET VOLUME 9.1 fL (7.4-10.4); MONOCYTES 11.7 % (2-11); NEUTROPHILS 63.8 % (40-80); PLATELET COUNT 241 10x3/uL (130-400); RBC 4.84 10x6/uL (4.20-6.10); RDW 12.9 % (11.5-14.5); WBC 10.5 10x3/uL (4.8-10.8)
[2019-07-10 13:09] LABS: ALT (SGPT) 31 U/L (10-68); CALC OSMOLALITY 274 mosm/kg (275-300); CALCIUM 9.1 mg/dL (8.5-10.1); CARBON DIOXIDE 26.7 mmol/L (21.0-32.0); CHLORIDE - SERUM 103 mmol/L (98-107); CHOL - HDL RATIO 2.6 ratio (2.3-4.9); CHOLESTEROL, TOTAL 122 mg/dL (0-200); CREATININE - SERUM 0.9 mg/dL (0.6-1.3); GLUCOSE 105 mg/dL (74-106); HDL CHOLESTEROL 47 mg/dL (32-96); LDL CHOLESTEROL 53 mg/dL (0-100); LDL-HDL RATIO 1.1 ratio (1.5-3.5); SODIUM 137 mmol/L (136-145); TRIGLYCERIDE 110 mg/dL (30-200); UREA NITROGEN 14 mg/dL (7-18); eGFR NON AFRICAN AMERICAN 87 mL/min (90-120)
--- NOTE | 2019-07-10 14:05 | NUR ---
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 MONITORS ESTAB. PT AWAKE AND ORIENTED. SEE IT SYSTEMS ENGINEER. ALARMS ON AND C/L IN REACH.
--- NOTE | 2019-07-10 14:20 | NUR ---
R WRIST SITE C/D/I, R ARM/HAND WARM WITH PALP PULSES. NO S/S BLEEDING OR SWELLING. VSS. ALARMS ON AND C/L IN REACH.
--- NOTE | 2019-07-10 14:50 | NUR ---
R WRIST SITE C/D/I, NO S/S BLEEDING OR HEMATOMA. VSS. PT DENIES PAIN OR NEEDS.
--- NOTE | 2019-07-10 14:55 | NUR ---
SPOKE WITH PTS SISTER, UPDATE GIVEN AND D/C INSTRUCTIONS REVIEWED. PLAN FOR PT D/C AT 1615.
--- NOTE | 2019-07-10 15:05 | NUR ---
PT SITTING UP IN BED, R WRIST SITE C/D/I, 5CC AIR REMOVED FROM Z BAND. NO S/S BLEEDING. SANDWICH TRAY PROVIDED. C/L IN REACH.
--- NOTE | 2019-07-10 15:21 | NUR ---
ALL AIR REMOVED FROM Z BAND, NO S/S OF BLEEDING OR SWELLING NOTED. PT EATING SANDWICH, VSS.
--- NOTE | 2019-07-10 15:25 | NUR ---
DR. CARPENTER IN TO TALK TO PT.
--- NOTE | 2019-07-10 15:55 | NUR ---
R WRIST C/D/I, Z BAND REMOVED, NO S/S BLEEDING OR SWELLING. PIV D/C'D INTACT, DSG APPLIED. PT ALLOWED UP TO GET DRESSED.
--- NOTE | 2019-07-10 16:00 | NUR ---
PT UP TO BR INDEPENDENTLY.
--- NOTE | 2019-07-10 16:11 | NUR ---
ALL D/C INSTRUCTIONS REVIEWED AND PT VERBALIZES UNDERSTANDING. PT D/C'D VIA WC TO PRIVATE VEHICLE WITH SISTER. PT HAS ALL PAPER WORK AND BELONGINGS.
== END 2019-07-10 16:11 | disposition home or self-care (01) ==
LOC: D.CATH 11:58
PROVIDERS: ATTEND Internal Medicine Cardiovascular Disease
DX: I25.119 Atherosclerotic heart disease of native coronary artery with unspecified angina pectoris (principal); I10 Essential (primary) hypertension; E78.5 Hyperlipidemia, unspecified; I25.2 Old myocardial infarction